=== PATIENT | male | born 1945 | race Hispanic/Latino ===

== ENCOUNTER → 2018-10-07 | Outpatient (CLI) | payer OTHER | END | disposition home or self-care (01) | LOC: SHCH 14:38 | PROVIDERS: ATTEND Internal Medicine Cardiovascular Disease | DX: I73.9 Peripheral vascular disease, unspecified (principal) | CPT/HCPCS: 93925 ==

== ENCOUNTER → 2018-11-04 | Outpatient (CLI) | payer OTHER ==
[~2018-11-04] MED LIST: IOHEXOL-350 50ML VIAL IV ONE; IOHEXOL-350 75 ML VIAL IV ONE
== END | disposition home or self-care (01) ==
LOC: RAH 10:46
PROVIDERS: ATTEND Internal Medicine Cardiovascular Disease
DX: I73.9 Peripheral vascular disease, unspecified (principal); I25.10 Atherosclerotic heart disease of native coronary artery without angina pectoris; K42.9 Umbilical hernia without obstruction or gangrene; K57.30 Diverticulosis of large intestine without perforation or abscess without bleeding; I70.90 Unspecified atherosclerosis; Z95.1 Presence of aortocoronary bypass graft
CPT/HCPCS: 75635; Q9967 ×2

== ENCOUNTER 2018-11-19 05:46 | Day surgery (SDC) | payer OTHER ==
[2018-11-17 12:28] LABS: BASOPHILS % (AUTO) 1.4 % (0.0-5.0); EOSINOPHILS % (AUTO) 2.9 % (0.0-8.0); HEMATOCRIT 43.3 % (42-54); LYMPHOCYTES % (AUTO) 20.4 % (21.0-51.0); MEAN CORPUSCULAR HEMOGLOBIN 29.9 pg (27.0-33.0); MEAN CORPUSCULAR HGB CONC 33.6 g/dL (32.0-36.0); MONOCYTES % (AUTO) 8.2 % (3.0-13.0); NEUTROPHILS % (AUTO) 67.1 % (40.0-77.0); PLATELET COUNT (AUTO) 195 K/uL (130-400); RED BLOOD CELL COUNT(AUTO) 4.86 MIL/uL (4.50-6.20); WHITE BLOOD COUNT (AUTO) 8.8 K/uL (4.8-10.8)
[2018-11-17 12:34] LABS: APPEARANCE,URINE Clear (CLEAR); BILIRUBIN,URINE Negative (NEGATIVE); COLOR,URINE Dark Yellow (YELLOW); GLUCOSE, URINE (UA) Negative (NEGATIVE); KETONES,URINE Trace mg/dL (NEGATIVE); LEUKOCYTE ESTERASE ,URINE Negative (NEGATIVE); NITRATE,URINE Negative (NEGATIVE); OCCULT BLOOD,URINE Negative (NEGATIVE); PROTEIN,URINE Negative (NEGATIVE)
[2018-11-17 12:42] VITALS: BP 137/67
[2018-11-17 12:54] LABS: CREATININE 1.3 mg/dL (0.5-1.5); INR 0.98 (0.85-1.15); PARTIAL THROMBOPLASTIN TIME 31.6 SEC (26.3-35.5); POTASSIUM 4.9 mmol/L (3.5-5.1); PROTHROMBIN TIME 10.3 SEC (9.6-11.6)
[2018-11-17 12:54] LABS: BACTERIA,URINE Rare /HPF (None Seen); RBC,URINE 0-1 /HPF (0-1); SQUAMOUS EPITHELIAL CELL,UR Rare /HPF (0-2)
--- NOTE | 2018-11-18 14:44 | NUR ---
labs abnormal bun /crea, and chest xray reported to eliel driver with dr. casanova, no further orders given at this time
[2018-11-19] VITALS (10 sets, daily range): BP systolic 114–137; BP diastolic 49–71
[~2018-11-19] VITALS: Ht 170.2 cm; Wt 110.2 kg
[~2018-11-19 05:46] MED LIST changes: +ASPI-555 PO; +BENA40TA9 PO; +CARV6.25 PO; +FURO40TA5 PO; +HUMLIS7525 SQ; +HYDR100T27 PO; -IOHEXOL-350 50ML VIAL IV ONE; -IOHEXOL-350 75 ML VIAL IV ONE; +NITR0.4T50 SL; +PANT40TA25 PO; +SIMV20TA6 PO; +SPIR25TA6 PO
[2018-11-19] MEDS ORDERED: SODIUM CHLORIDE 0.9% 1000ML 1,000 ML IV ONE (06:50)
[2018-11-19] MEDS ORDERED: NITROGLYCERIN 5 MG/ML 10 ML VIAL IV ONE (10:12)
[2018-11-19] MEDS ORDERED: HEPARIN SODIUM 1000UNIT/ML 10ML VIAL ONE (10:12)
[2018-11-19] MEDS ORDERED: LIDOCAINE HCL 1% 20 ML VIAL ONE (10:12)
[2018-11-19] MEDS ORDERED: IODIXANOL 320 MG/ML 100 ML VIAL ONE ×2 (10:13→12:08)
--- NOTE | 2018-11-19 10:30 | NUR ---
PROCEDURE PT TAKEN TO PASTEURISER OPERATOR VIA BED FOR PROCEDURE. FAMILY AT BEDSIDE.
[2018-11-19] MEDS ORDERED: CLOPIDOGREL BISULFATE 300 MG TAB ONE (11:50)
[2018-11-19] MEDS ORDERED: HYDRALAZINE HCL 20 MG/ML VIAL ONE ×3 (12:10→12:25)
[2018-11-19] MEDS ORDERED: ENALAPRILAT DIHYDRATE 1.25 MG/ML 2ML VIAL IVP ONE (12:10)
[2018-11-19] MEDS ORDERED: SODIUM CHLORIDE 0.9% 1000ML 1,000 ML IV SCH (12:36)
--- NOTE | 2018-11-19 12:50 | NUR ---
POST OP RECEIVED PT FROM SHIP PROPELLER FINISHER, S/P STENT TO RIGHT LOWER EXTREMITY, PERIPHERAL ANGIOGRAM RIGHT GROIN DRESSING DRY AND INTACT, SEE POST CATH ASSESSMENT, PT VS STABLE. INSTRUCTED PATIENT TO MAINTAIN RIGHT LEG STRAIGHT, TO KEEP BEDREST FOR 2 HRS. FAMILY AT BEDSIDE. WILL CONTINUE TO MONITOR
--- NOTE | 2018-11-19 18:58 | NUR ---
NURSING: PT SITTING IN CHAIR, NO C/O PAIN TO RT GROIN, DRESSING TO RT GROIN IS D/I. PT AND GIVEN POST CARE INSTRUCTIONS AND PRESCRIPTION. BOTH VERBALIZED UNDERSTANDING OF INSTRUCTIONS. PT STABLE, VITALS STABLE, PT DRESSED AT BEDSIDE WITH ASSISTANCE FROM HIS . PT PLACED IN A WHEELCHAIR, DRIVEN HOME BY .
[2018-11-20] MEDS ORDERED: ASPIRIN 81MG TAB.CHEW PO SCH (09:00)
[2018-11-20] MEDS ORDERED: CLOPIDOGREL BISULFATE 75 MG TAB PO SCH (09:00)
== END 2018-11-19 19:03 ==
LOC: DAH 05:46
PROVIDERS: ATTEND Internal Medicine Cardiovascular Disease
DX: I70.213 Atherosclerosis of native arteries of extremities with intermittent claudication, bilateral legs (principal); Z79.899 Other long term (current) drug therapy; I25.10 Atherosclerotic heart disease of native coronary artery without angina pectoris; Z95.1 Presence of aortocoronary bypass graft; Z98.890 Other specified postprocedural states; E11.9 Type 2 diabetes mellitus without complications; I10 Essential (primary) hypertension; E78.5 Hyperlipidemia, unspecified; M10.9 Gout, unspecified; Z82.49 Family history of ischemic heart disease and other diseases of the circulatory system; Z83.3 Family history of diabetes mellitus; Z68.35 Body mass index [BMI] 35.0-35.9, adult; Z79.01 Long term (current) use of anticoagulants
CPT/HCPCS: 36415 ×2; 37226; 71045; 75630; 80048; 81001; 82948 ×2; 85025; 85347; 85610; 85730; 93005; A4606; C1725; C1760; C1769; C1874; C1893; C1894 ×2; J0360 ×2; J1644 ×2; J3490 ×2; J7030; Q9967; 75625; 75716

== ENCOUNTER 2018-12-15 08:54 | Day surgery (SDC) | payer OTHER ==
[2018-12-11 10:00] LABS: APPEARANCE,URINE Clear (CLEAR); BILIRUBIN,URINE Negative (NEGATIVE); COLOR,URINE Yellow (YELLOW); GLUCOSE, URINE (UA) Negative (NEGATIVE); KETONES,URINE Negative (NEGATIVE); LEUKOCYTE ESTERASE ,URINE Negative (NEGATIVE); NITRATE,URINE Negative (NEGATIVE); OCCULT BLOOD,URINE Negative (NEGATIVE); PROTEIN,URINE Negative (NEGATIVE)
[2018-12-11 10:00] LABS: BASOPHILS % (AUTO) 0.8 % (0.0-5.0); EOSINOPHILS % (AUTO) 2.3 % (0.0-8.0); HEMATOCRIT 45.3 % (42-54); LYMPHOCYTES % (AUTO) 18.6 % (21.0-51.0); MEAN CORPUSCULAR HEMOGLOBIN 30.1 pg (27.0-33.0); MEAN CORPUSCULAR HGB CONC 33.8 g/dL (32.0-36.0); MEAN CORPUSCULAR VOLUME 88.8 fL (79-99); MONOCYTES % (AUTO) 7.6 % (3.0-13.0); NEUTROPHILS % (AUTO) 70.7 % (40.0-77.0); PLATELET COUNT (AUTO) 144 K/uL (130-400); RED CELL DISTRIBUTION WIDTH 13.1 % (11.0-15.5); WHITE BLOOD COUNT (AUTO) 8.7 K/uL (4.8-10.8)
[2018-12-11 10:01] VITALS: BP 135/67
[2018-12-11 10:10] LABS: CREATININE 1.1 mg/dL (0.5-1.5); POTASSIUM 4.8 mmol/L (3.5-5.1)
[2018-12-11 10:14] LABS: INR 0.97 (0.85-1.15); PARTIAL THROMBOPLASTIN TIME 32.9 SEC (26.3-35.5); PROTHROMBIN TIME 10.2 SEC (9.6-11.6)
--- NOTE | 2018-12-14 09:39 | NUR ---
CALLED ABNORMALN BMP AND CHEST XRAY TO ANGEL ENAMORADO OF DR. HUIZAR. NO NEW ORDERS OK TO PROCEED
[~2018-12-15] VITALS: Ht 170.2 cm; Wt 112.1 kg
[2018-12-15] VITALS (12 sets, daily range): BP systolic 121–167; BP diastolic 55–86
[~2018-12-15 08:54] MED LIST changes: +CLOP75TA32 PO; -FURO40TA5 PO
[2018-12-15] MEDS ORDERED: SODIUM CHLORIDE 0.9% 1000ML 1,000 ML IV ONE (09:15)
[2018-12-15] MEDS ORDERED: NITROGLYCERIN 5 MG/ML 10 ML VIAL IV ONE (12:54)
[2018-12-15] MEDS ORDERED: LIDOCAINE HCL 2% 20ML ONE (12:54)
[2018-12-15] MEDS ORDERED: IODIXANOL 320 MG/ML 100 ML VIAL ONE (12:54)
[2018-12-15] MEDS ORDERED: HEPARIN SODIUM 1000UNIT/ML 10ML VIAL ONE (12:54)
[2018-12-15] MEDS ORDERED: MIDAZOLAM HCL 1 MG/ML 2ML VIAL ONE (14:05)
[2018-12-15] MEDS ORDERED: FENTANYL CITRATE PF 50 MCG/1 ML 2ML VIAL ONE (14:05)
[2018-12-15] MEDS ORDERED: CLOPIDOGREL BISULFATE 300 MG TAB ONE (14:40)
[2018-12-15] MEDS ORDERED: SODIUM CHLORIDE 0.9% 1000ML 1,000 ML IV SCH (14:42)
--- NOTE | 2018-12-15 19:15 | NUR ---
Pt discharged home, tolerating fluids/food well, voided large amount prior to discharge, ambulating well. Denies any severe pain, nausea, or dizziness. Left groin cath site remains dry, clean, and intact without any evidence of bleeding. Pt instructed in routine and emergency care of cath site. Pt and spouse verbalized understanding. Pt and spouse report no further questions at this time.
[2018-12-16] MEDS ORDERED: CLOPIDOGREL BISULFATE 75 MG TAB PO SCH (09:00)
[2018-12-16] MEDS ORDERED: ASPIRIN 81MG TAB.CHEW PO SCH (09:00)
== END 2018-12-15 19:15 | disposition home or self-care (01) ==
LOC: DAH 08:54
PROVIDERS: ATTEND Internal Medicine Cardiovascular Disease
DX: I70.211 Atherosclerosis of native arteries of extremities with intermittent claudication, right leg (principal); I25.10 Atherosclerotic heart disease of native coronary artery without angina pectoris; Z95.5 Presence of coronary angioplasty implant and graft; E11.9 Type 2 diabetes mellitus without complications; I10 Essential (primary) hypertension; E78.5 Hyperlipidemia, unspecified; F15.90 Other stimulant use, unspecified, uncomplicated; M10.9 Gout, unspecified; Z72.89 Other problems related to lifestyle; Z79.01 Long term (current) use of anticoagulants; Z79.899 Other long term (current) drug therapy; Z79.4 Long term (current) use of insulin; Z83.3 Family history of diabetes mellitus; Z82.49 Family history of ischemic heart disease and other diseases of the circulatory system; Z82.3 Family history of stroke
CPT/HCPCS: 36415; 37224; 71045; 80048; 81003; 82948 ×2; 85025; 85610; 85730; 93005; A4606; C1760 ×2; C1769 ×2; C1893; C1894 ×2; J1644 ×2; J2250; J3010; J3490 ×2; J7030; Q9967; 99156; 99157

== ENCOUNTER 2023-07-02 01:28 | Emergency (ER) | payer OTHER ==
[~2023-07-02 01:28] MED LIST changes: -ASPI-555 PO; +ASPI-556 PO; -BENA40TA9 PO; +BENA40TA92 PO; -PANT40TA25 PO; +PANT40TA54 PO; +SIMV-43 PO; -SIMV20TA6 PO
[2023-07-02 02:04] LABS: BASOPHILS # (AUTO) 0.06 K/uL (0.00-0.20); BASOPHILS % (AUTO) 0.6 % (0.0-5.0); EOSINOPHILS # (AUTO) 0.21 K/uL (0.00-0.70); EOSINOPHILS % (AUTO) 2.1 % (0.0-8.0); HEMATOCRIT 46.4 % (42-54); IMMATURE GRANULOCYTE ABSOLUTE 0.05 K/uL (0-1); LYMPHOCYTES # (AUTO) 2.1 K/uL (1.0-4.8); LYMPHOCYTES % (AUTO) 20.6 % (21.0-51.0); MEAN CORPUSCULAR HEMOGLOBIN 26.4 pg (27.0-33.0); MEAN CORPUSCULAR HGB CONC 31.9 g/dL (32.0-36.0); MEAN CORPUSCULAR VOLUME 82.7 fL (79-99); MONOCYTES # (AUTO) 0.9 K/uL (0.1-1.0); MONOCYTES % (AUTO) 8.7 % (3.0-13.0); NEUTROPHILS # (AUTO) 6.8 K/uL (1.8-7.7); NEUTROPHILS % (AUTO) 67.5 % (40.0-77.0); PLATELET COUNT (AUTO) 232 K/uL (130-400); RED BLOOD CELL COUNT(AUTO) 5.61 MIL/uL (4.50-6.20); RED CELL DISTRIBUTION WIDTH 13.2 % (11.0-15.5); WHITE BLOOD COUNT (AUTO) 10.1 K/uL (4.8-10.8)
[2023-07-02 02:15] LABS: CREATININE 0.7 mg/dL (0.5-1.5); POTASSIUM 4.1 mmol/L (3.5-5.1)
[2023-07-02 02:19] LABS: ALBUMIN 2.4 g/dL (3.5-5.0); BILIRUBIN,TOTAL 0.4 mg/dL (0.2-1.0); TOTAL PROTEIN, SERUM 6.4 g/dL (6.0-8.3)
[2023-07-02 02:33] LABS: B-TYPE NATRIURETIC PEPTIDE 51 pg/mL (0-100)
[2023-07-02 02:55] LABS: ABG BASE EXCESS 2.4 mmol/L (-2.0-3.0); ABG HCO3 26.5 mmol/L (21.0-28.0); ABG OXYGEN SATURATION 95.2 % (95.0-99.0); ABG PCO2 40 mmHg (35-48); ABG PH 7.443 (7.35-7.450); CARBON MONOXIDE 1.6; DEVICE COMMENT ROOM AIR; HHb 4.7; PO2, ARTERIAL BG 72.2 mmHg (83.0-108.0)
[2023-07-02] MEDS ORDERED: IOHEXOL-350 75 ML VIAL IV ONE (03:11)
[2023-07-02] MEDS ORDERED: ALBU90AE2 IH (04:18)
[2023-07-02] MEDS ORDERED: AZIT500T2 PO (04:18)
[2023-07-02 04:38] VITALS: BP 167/74; PULSE 64; RESP 16; O2SAT 98
== END 2023-07-02 05:35 ==
LOC: EDH 01:28
DX: F41.9 Anxiety disorder, unspecified (principal); J20.9 Acute bronchitis, unspecified; R06.82 Tachypnea, not elsewhere classified; E11.9 Type 2 diabetes mellitus without complications; E78.00 Pure hypercholesterolemia, unspecified; Z79.82 Long term (current) use of aspirin; Z79.899 Other long term (current) drug therapy; Z98.890 Other specified postprocedural states
CPT/HCPCS: 99285; 71270; 93971; 71045; 82947; 82550; 84484; 80053; 82803; 83880; 85025; 83605; 36415; 93005; 36600; 85018; 82435; 84132; 84295; Q9967